=== PATIENT | female | born 1965 | race Caucasian/White ===

== ENCOUNTER 2021-10-21 14:03 | Inpatient (IN) | payer MEDICARE ==
[~2021-10-21] VITALS: Ht 180.3 cm; Wt 77.1 kg
[2021-10-21 16:59] LABS: BASOPHILS PERCENT AUTO 1 % (0-2); EOSINOPHILS ABSOLUTE AUTO 0.12 K/mm3 (0.00-0.68); EOSINOPHILS PERCENT AUTO 2 % (0-6); Hematocrit 38.2 % (37.0-53.0); Hemoglobin 12.2 g/dL (13.5-17.5); IMMATURE GRAN ABSOLUTE AUTO 0.02 K/mm3 (0.00-0.10); IMMATURE GRAN PERCENT AUTO 0 % (0-1); LYMPHOCYTES ABSOLUTE AUTO 2.07 K/mm3 (0.84-5.20); LYMPHOCYTES PERCENT AUTO 28 % (21-46); MONOCYTES ABSOLUTE AUTO 0.72 K/mm3 (0.16-1.47); MONOCYTES PERCENT AUTO 10 % (4-13); Mean Corpuscular HGB Conc 31.9 g/dL (31.5-36.5); Mean Corpuscular Volume 94 fL (80-100); Mean Platelet Volume 9.5 fL (9.1-12.4); NEUTROPHILS ABSOLUTE AUTO 4.34 K/mm3 (1.96-9.15); NEUTROPHILS PERCENT AUTO 59 % (41-73); Platelet Count 390 K/mm3 (150-400); RDW Coefficient Variation 16.5 % (11.7-14.2); RDW Standard Deviation 57.1 fL (35.1-46.3); Red Blood Cell Count 4.07 M/mm3 (4.30-5.90); White Blood Cell Count 7.37 K/mm3 (4.00-11.30)
[2021-10-21 17:23] LABS: Alanine Aminotransfer (ALT/SGP 30 U/L (12-78); Albumin, Blood 3.5 g/dL (3.4-5.0); Albumin/Globulin Ratio 0.9 (0.8-1.8); Alk Phos 86 U/L (50-136); Anion Gap 6 mmol/L (6-16); Aspartate Aminotrans (AST/SGOT 25 U/L (12-37); Bilirubin, Total 0.4 mg/dL (0.1-1.0); Blood Urea Nitrogen 18 mg/dL (8-24); Bun/Creatinine Ratio 32.4 (12.0-20.0); CO2, Blood 26 mmol/L (21-32); Calcium, Blood 9.4 mg/dL (8.5-10.1); Chloride, Blood 108 mmol/L (98-108); Creatinine, Blood 0.56 mg/dL (0.60-1.20); Glomerular Filtration Rate >60 (60-); Glucose, Blood 143 mg/dL (70-99); Potassium, Blood 4.1 mmol/L (3.5-5.5); Sodium, Blood 140 mmol/L (136-145); Total Protein, Blood 7.5 g/dL (6.4-8.2)
[2021-10-21 18:17] LABS: Influenza A, PCR NEGATIVE (NEGATIVE); Influenza B, PCR NEGATIVE (NEGATIVE); Resp Syncytial Virus, PCR NEGATIVE (NEGATIVE); SARS-Cov-2 (COVID-19) PCR, MMC NEGATIVE (NEGATIVE)
--- NOTE | 2021-10-21 20:05 | NUR ---
RECEIVED PATIENT TO UNIT AT ABOUT 1905. RECEIVED REPORT FROM JASWANT MCKEON. PATIENT ALERT AND ORIENTED X'S 4. DENIES PAIN OR DISCOMFORT BUT COMPLAINTS OF HAVING PHANTOM PAIN AT TIMES. DRESSING TO [facility]. BS 61, ASYMTOMATIC, SNACK PROVIDED.
[2021-10-22 05:05] LABS: BASOPHILS ABSOLUTE AUTO 0.12 K/mm3 (0.00-0.23); BASOPHILS PERCENT AUTO 2 % (0-2); EOSINOPHILS ABSOLUTE AUTO 0.33 K/mm3 (0.00-0.68); EOSINOPHILS PERCENT AUTO 5 % (0-6); Hematocrit 36.2 % (33.0-51.0); Hemoglobin 11.7 g/dL (11.5-16.0); IMMATURE GRAN ABSOLUTE AUTO 0.02 K/mm3 (0.00-0.10); IMMATURE GRAN PERCENT AUTO 0 % (0-1); LYMPHOCYTES ABSOLUTE AUTO 2.21 K/mm3 (0.84-5.20); LYMPHOCYTES PERCENT AUTO 32 % (21-46); MONOCYTES ABSOLUTE AUTO 0.76 K/mm3 (0.16-1.47); MONOCYTES PERCENT AUTO 11 % (4-13); Mean Corpuscular HGB 29.7 pg (26.0-34.0); Mean Corpuscular HGB Conc 32.3 g/dL (31.5-36.5); Mean Corpuscular Volume 92 fL (80-100); Mean Platelet Volume 9.7 fL (9.1-12.4); NEUTROPHILS ABSOLUTE AUTO 3.55 K/mm3 (1.96-9.15); NEUTROPHILS PERCENT AUTO 51 % (41-73); Platelet Count 371 K/mm3 (150-400); RDW Coefficient Variation 16.8 % (11.7-14.2); RDW Standard Deviation 56.9 fL (35.1-46.3); Red Blood Cell Count 3.94 M/mm3 (3.80-5.20); White Blood Cell Count 6.99 K/mm3 (4.00-11.30)
--- NOTE | 2021-10-22 05:28 | NUR ---
PATIENT ALERT AND ORIENTED X'4. NPO AFTER 12AM. DRESSING TO LLE CLEAN DRY AND INTACT. MEDICATED FOR PAIN MANAGEMENT, EFFECTIVE RELIEF. SLEPT IN LONG INTERVALS THROUGH NIGHT. SAFETY MAINTAINED, CALL SMITH IN REACH.
[2021-10-22 05:49] LABS: Anion Gap 9 mmol/L (6-16); Blood Urea Nitrogen 16 mg/dL (8-24); Bun/Creatinine Ratio 26.2 (12.0-20.0); CO2, Blood 27 mmol/L (21-32); Calcium, Blood 9.2 mg/dL (8.5-10.1); Chloride, Blood 106 mmol/L (98-108); Creatinine, Blood 0.61 mg/dL (0.40-1.00); Glomerular Filtration Rate >60 (60-); Glucose, Blood 172 mg/dL (70-99); Potassium, Blood 3.8 mmol/L (3.5-5.5); Sodium, Blood 142 mmol/L (136-145)
--- NOTE | 2021-10-22 09:49 | NUR ---
PT TO OR AT ABOUT 0864
--- NOTE | 2021-10-22 10:30 | NUR ---
10/22/21 1030 Betito Don PRE OP XR PERFORMED BY TO VERIFY THAT THERE ARE NO ALEX PRESENT IN LEFT LOWER EXTREMITY.
--- NOTE | 2021-10-22 17:09 | NUR ---
SUMMARY: PT IS POD0 I&D OF L BKA STUMP. NO ACUTE CHANGE, VSS, A/O. WOUND VAC WNL, MINIMAL OUTPUT. SHANELL WRAP CDI. PT HAS REPORTED MINIMAL PAIN, FENTANYAL GIVEN X1. PT IS VOIDING AND TOLERATING ADA DIET, MONITORING BLOOD SUGARS. NO ACUTE SAFETY CONCERNS, WILL CTM.
[2021-10-23 04:03] LABS: BASOPHILS ABSOLUTE AUTO 0.08 K/mm3 (0.00-0.23); BASOPHILS PERCENT AUTO 1 % (0-2); EOSINOPHILS ABSOLUTE AUTO 0.07 K/mm3 (0.00-0.68); EOSINOPHILS PERCENT AUTO 1 % (0-6); Hematocrit 33.8 % (33.0-51.0); Hemoglobin 11.2 g/dL (11.5-16.0); IMMATURE GRAN ABSOLUTE AUTO 0.02 K/mm3 (0.00-0.10); IMMATURE GRAN PERCENT AUTO 0 % (0-1); LYMPHOCYTES PERCENT AUTO 24 % (21-46); MONOCYTES ABSOLUTE AUTO 1.07 K/mm3 (0.16-1.47); MONOCYTES PERCENT AUTO 12 % (4-13); Mean Corpuscular HGB 29.6 pg (26.0-34.0); Mean Corpuscular HGB Conc 33.1 g/dL (31.5-36.5); Mean Corpuscular Volume 89 fL (80-100); Mean Platelet Volume 9.9 fL (9.1-12.4); NEUTROPHILS ABSOLUTE AUTO 5.58 K/mm3 (1.96-9.15); NEUTROPHILS PERCENT AUTO 63 % (41-73); Platelet Count 381 K/mm3 (150-400); RDW Coefficient Variation 16.2 % (11.7-14.2); RDW Standard Deviation 53.6 fL (35.1-46.3); Red Blood Cell Count 3.78 M/mm3 (3.80-5.20); White Blood Cell Count 8.92 K/mm3 (4.00-11.30)
[2021-10-23 04:39] LABS: Anion Gap 6 mmol/L (6-16); Blood Urea Nitrogen 18 mg/dL (8-24); Bun/Creatinine Ratio 30.5 (12.0-20.0); CO2, Blood 29 mmol/L (21-32); Chloride, Blood 100 mmol/L (98-108); Creatinine, Blood 0.59 mg/dL (0.40-1.00); Glomerular Filtration Rate >60 (60-); Glucose, Blood 296 mg/dL (70-99); Potassium, Blood 4.1 mmol/L (3.5-5.5); Sodium, Blood 135 mmol/L (136-145); Vancomycin, Trough 12.4 ug/mL (5.0-10.0)
--- NOTE | 2021-10-23 06:41 | NUR ---
ALERT AND ORIENTED X'S 4. COMPLAINED OF NAUSEA/ VOMITTING AND CHESY BURNING. ZOFRAN GIVEN X'S 2, EFFECTIVE. GI COCKTAIL GIVEN, EFFECTIVE RELIEF. PATIENT STATED HE FELT THIS WAY AFTER HIS LAST SURGERY. WOUND VAC DRAINING SEROSANGUINOUS FLUID. SAFETY MAINTAONED, CALL SMITH IN REACH,
--- NOTE | 2021-10-23 16:28 | NUR ---
SUMMARY: PT IS POD1 I&D OF L STUMP. A/O, VSS. PT HAS DENIED PAIN TODAY. SURGICAL SITE WNL. PER DR. MCKINNEY, PLAN TO CHANGE WOUND VAC AND DO DRESSING CHANGE TOMORROW. PT MOVES WELL WITH PIVOT TRANSFER TO HER OWN WHEELCHAIR. USES CALL LIGHT, NO SAFETY CONCERNS AT THIS TIME.
[2021-10-23] MEDS ORDERED: ACET325 PO (23:47)
[2021-10-23] MEDS ORDERED: DULO30 PO (23:48)
[2021-10-23] MEDS ORDERED: FAMO20 PO (23:50)
[2021-10-23] MEDS ORDERED: GABA400 PO (23:51)
[2021-10-24] MEDS ORDERED: HUMALOG KW100 UNIT/1 SC ×2 (00:04)
[2021-10-24] MEDS ORDERED: CEPH500 PO (00:06)
[2021-10-24] MEDS ORDERED: LAMO25 PO (00:08)
[2021-10-24] MEDS ORDERED: ATOR10 PO (00:09)
[2021-10-24] MEDS ORDERED: LISI20 PO (00:10)
[2021-10-24] MEDS ORDERED: AMLO5 PO (00:12)
[2021-10-24] MEDS ORDERED: OXYC5 PO (00:12)
[2021-10-24] MEDS ORDERED: CLOP75 PO (00:13)
[2021-10-24] MEDS ORDERED: MIRT15 PO (00:14)
[2021-10-24] MEDS ORDERED: INSULANPEN SC (00:16)
--- NOTE | 2021-10-24 00:33 | NUR ---
CALLED HOSPITALIST TO ADDRESS NO ORDERS FOR COVERAGE OF A CBG OF 341 OR ORDER OF LONG ACTING INSULIN. HOSPITALIST REQUESTED CHEM STICK AT THIS TIME, NEW CBG 343. HOSPITALIST ORDERED 5UNITS OF JAKUBALOG KARINA CHIANG ONE TIME. AND STATES THAT LONG ACTING INSULIN SHOULD BE ADDRESSED BY AM DOCTOR AND RN.
[2021-10-24 04:58] LABS: BASOPHILS ABSOLUTE AUTO 0.07 K/mm3 (0.00-0.23); BASOPHILS PERCENT AUTO 1 % (0-2); EOSINOPHILS ABSOLUTE AUTO 0.32 K/mm3 (0.00-0.68); EOSINOPHILS PERCENT AUTO 5 % (0-6); Hematocrit 33.8 % (33.0-51.0); Hemoglobin 11.1 g/dL (11.5-16.0); IMMATURE GRAN ABSOLUTE AUTO 0.01 K/mm3 (0.00-0.10); IMMATURE GRAN PERCENT AUTO 0 % (0-1); LYMPHOCYTES ABSOLUTE AUTO 2.47 K/mm3 (0.84-5.20); LYMPHOCYTES PERCENT AUTO 35 % (21-46); MONOCYTES ABSOLUTE AUTO 0.79 K/mm3 (0.16-1.47); MONOCYTES PERCENT AUTO 11 % (4-13); Mean Corpuscular HGB 29.8 pg (26.0-34.0); Mean Corpuscular HGB Conc 32.8 g/dL (31.5-36.5); Mean Corpuscular Volume 91 fL (80-100); Mean Platelet Volume 9.8 fL (9.1-12.4); NEUTROPHILS ABSOLUTE AUTO 3.36 K/mm3 (1.96-9.15); NEUTROPHILS PERCENT AUTO 48 % (41-73); Platelet Count 344 K/mm3 (150-400); RDW Coefficient Variation 16.2 % (11.7-14.2); RDW Standard Deviation 54.5 fL (35.1-46.3); Red Blood Cell Count 3.73 M/mm3 (3.80-5.20); White Blood Cell Count 7.02 K/mm3 (4.00-11.30)
--- NOTE | 2021-10-24 06:23 | NUR ---
SHIFT SUMMARY POD1 I&D OF L BKA WITH WOUND VAC, SHANELL WRAP C/D/I. VOIDING WELL. TOLERATING PO INTAKE. NEW IV START IN R FORARM. NO PAIN REPORTED THROUGHOUT SHIFT. WILL REPORT TO ONCOMING RN.
--- NOTE | 2021-10-24 12:35 | NUR ---
WOUND VAC CHANGE TO L STUMP. MEASURMENTS DONE AT THIS TIME 3 INCH X 1.5 INCH X 3/4 INCH
--- NOTE | 2021-10-24 12:42 | NUR ---
1130 INSULIN COVERAGE OF 5 "U" WAS GIVEN "7" PER dR. AMEZCUA'S TELEPHONE ORDER TO ADD 2 "U" MORE WITH CBG OF 426. EMAR SHOWED 2"U" NOT GIVEN BUT ALREADY INCLUDED WITH 5 "U" COVERAGE.
--- NOTE | 2021-10-24 12:51 | NUR ---
Patient is sitting up in bed and alert. 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 I explore spiritual beliefs and sources of meaning, value and purpose. I highlight her positive characteristics and the good yet to be done with her life. She tells me about her former marriage, the woman she was to and the reconciliation they enjoyed before her recent . I encourage self-care, reinforce helpful attitudes and practices, and provide therapeutic listening, companionship and gentle mental health counselor. Patient responds well and shows signs of an elevated mood and increased hope. I will continue to assist patient in how to cultivate healthy spirituality and focus.
--- NOTE | 2021-10-24 13:13 | NUR ---
1230 WOUND VAC DRESSING TO I & D AT LEFT BKA CHANGED BY CRM ANALYST & HIARM MICHAUD, DRAINING MODERATE AMOUNT OF SEROUS DRAINAGE.
--- NOTE | 2021-10-24 13:17 | NUR ---
DR. NICHELLE QUIROZ ROUNDED, EXPLAINED TO PATIENT RE: I&D & POSSIBILITY OF NO INFECTION IN THAT AREA.
--- NOTE | 2021-10-24 17:03 | NUR ---
1650 TELEPHONE ORDER RECEIVED FROM DR. Tamara AMEZCUA TO ADD SCHEDULED REGULAR INSULIN 10 "U" PRE BREAKFAST, 10 "U" PRELUNCH & 12 "U" PRE DINNER ON TOP OF SLIDING SCALE COVERAGE.
--- NOTE | 2021-10-24 17:36 | NUR ---
1736 12 "U" NOVOLIN R GIVEN PER DR. Tamara AMEZCUA'S ORDER FOR PRE DINNER.
--- NOTE | 2021-10-24 18:58 | NUR ---
SHIFT SUMMARY: PATIENT SEEN TODAY BY DR. MCKINNEY, DR. AMEZCUA & DR. NICHELLE QUIROZ. WOUND VAC DRESSING CHANGED BY SUNITHA MICHAUD & HIRAM MICHAUD. ADDITIONAL NOVOLOG PREMEAL ORDERED BY DR. AMEZCUA. PATIENT WAS ON BEDREST TODAY. REPORT GIVEN TO JIE MICHAUD FOR CONTINUITY OF CARE.
--- NOTE | 2021-10-24 20:56 | NUR ---
CALLED DR TALBOT AT APPROX 2029 ABOUT A CRITICAL CBG OF 482, AT THAT TIME ORDER WAS OBTAINED TO GIVE PT 6 UNITS OF HUMALOG.
[2021-10-25 05:11] LABS: White Blood Cell Count 6.29 K/mm3 (4.00-11.30)
[2021-10-25 05:12] LABS: BASOPHILS ABSOLUTE AUTO 0.08 K/mm3 (0.00-0.23); BASOPHILS PERCENT AUTO 1 % (0-2); EOSINOPHILS ABSOLUTE AUTO 0.38 K/mm3 (0.00-0.68); EOSINOPHILS PERCENT AUTO 6 % (0-6); Hematocrit 34.3 % (33.0-51.0); Hemoglobin 11.4 g/dL (11.5-16.0); IMMATURE GRAN ABSOLUTE AUTO 0.02 K/mm3 (0.00-0.10); IMMATURE GRAN PERCENT AUTO 0 % (0-1); LYMPHOCYTES ABSOLUTE AUTO 2.07 K/mm3 (0.84-5.20); LYMPHOCYTES PERCENT AUTO 33 % (21-46); MONOCYTES ABSOLUTE AUTO 0.76 K/mm3 (0.16-1.47); MONOCYTES PERCENT AUTO 12 % (4-13); Mean Corpuscular HGB 29.2 pg (26.0-34.0); Mean Corpuscular HGB Conc 33.2 g/dL (31.5-36.5); Mean Corpuscular Volume 88 fL (80-100); Mean Platelet Volume 9.8 fL (9.1-12.4); NEUTROPHILS ABSOLUTE AUTO 2.98 K/mm3 (1.96-9.15); NEUTROPHILS PERCENT AUTO 47 % (41-73); Platelet Count 344 K/mm3 (150-400); RDW Coefficient Variation 15.8 % (11.7-14.2); RDW Standard Deviation 51.1 fL (35.1-46.3)
[2021-10-25 05:30] LABS: Potassium, Blood 4.1 mmol/L (3.5-5.5); Sodium, Blood 136 mmol/L (136-145)
[2021-10-25 05:31] LABS: Anion Gap 6 mmol/L (6-16); Blood Urea Nitrogen 16 mg/dL (8-24); Bun/Creatinine Ratio 28.8 (12.0-20.0); CO2, Blood 28 mmol/L (21-32); Chloride, Blood 102 mmol/L (98-108); Creatinine, Blood 0.56 mg/dL (0.40-1.00); Glomerular Filtration Rate >60 (60-); Glucose, Blood 296 mg/dL (70-99); Vancomycin, Trough 10.5 ug/mL (5.0-10.0)
[2021-10-25] MEDS ORDERED: DOCU100 PO (10:48)
[2021-10-25] MEDS ORDERED: SENNA LAXATIVE8.6 MG PO (10:49)
[2021-10-25] MEDS ORDERED: AMOCLA500 PO (11:11)
--- NOTE | 2021-10-25 17:29 | NUR ---
DISCHARGE PT LEFT VIA WHEELCHAIR AT 1715 PT ABLE TO TRANSFER SELF TO WHEELCHAIR. SHE MOVES WOUNDVAC SAFELY TO CHAIR WHEN MOVING AROUND ROOM. EDUCATED PATIENT ON WOUND VAC AND KEEPING INTACT. GAVE PATIENT EXTRA SUPPLIES FOR WET TO DRY INCASE DRESSING IS REMOVED OR FALLS OFF AND UNABLE TO SEE HOME HEALTH. PT STATES UNDERSTANDING. PT PLANS TO FOLLOW UP WITH [facility] TOMORROW AND DR. MCKINNEY IN 1 WEEK. IV REMOVED. ALL BELONGINGS SENT WITH PATIENT.
== END 2021-10-25 17:33 | disposition home or self-care (01) | DRG 476 ==
LOC: ER 14:03 → EDSEX 18:24 → ERHOLD 18:24 → SURS 18:24
PROVIDERS: Internal Medicine; Orthopaedic Surgery; Pharmacist; Physician Assistant; ADMIT Internal Medicine
PROC: 0Y6J0Z1 Detachment at Left Lower Leg, High, Open Approach (ICD-10-PCS; principal; 2021-10-22 09:00)
DX: T87.81 Dehiscence of amputation stump (principal); Z66 Do not resuscitate; E11.40 Type 2 diabetes mellitus with diabetic neuropathy, unspecified; F32.A Depression, unspecified; F17.210 Nicotine dependence, cigarettes, uncomplicated; Z20.822 Contact with and (suspected) exposure to COVID-19; E11.51 Type 2 diabetes mellitus with diabetic peripheral angiopathy without gangrene; I25.10 Atherosclerotic heart disease of native coronary artery without angina pectoris; I25.2 Old myocardial infarction; Z95.1 Presence of aortocoronary bypass graft; Z88.8 Allergy status to other drugs, medicaments and biological substances; Z79.4 Long term (current) use of insulin; Z79.899 Other long term (current) drug therapy; W18.39XA Other fall on same level, initial encounter; Y83.5 Amputation of limb(s) as the cause of abnormal reaction of the patient, or of later complication, without mention of misadventure at the time of the procedure
CPT/HCPCS: 0241U; 36415; 73590; 80048; 80053; 80202; 82947; 85025; 85651; 86140; 87071; 87075; 87205; 94762; 96365; 96375; 99284; A9270; J0690; J1100; J1650; J1815; J1885; J2250; J2405; J2704; J3010; J3370; J7030; J7050